=== PATIENT | female | born 1950 | race Caucasian/White ===

== ENCOUNTER 2025-02-20 07:51 | Day surgery (SDC) | payer OTHER, MEDICARE ==
[~2025-02-20] VITALS: Ht 157.5 cm; Wt 45.2 kg
[2025-02-20] MEDS ORDERED: CALCIUM CIT 311 EAC7 (08:01)
[2025-02-20] MEDS ORDERED: LEVSOD75 (08:02)
[2025-02-20] MEDS ORDERED: SUMA25 (08:02)
[2025-02-20 10:07] VITALS: BP 100/82
== END 2025-02-20 10:12 | disposition home or self-care (01) ==
LOC: ORSCSDS 07:51
PROVIDERS: Family Medicine
PROC: 0DJD8ZZ Inspection of Lower Intestinal Tract, Via Natural or Artificial Opening Endoscopic (ICD-10-PCS; principal; 2025-02-20 09:00)
DX: Z12.11 Encounter for screening for malignant neoplasm of colon (principal); K57.30 Diverticulosis of large intestine without perforation or abscess without bleeding; F41.1 Generalized anxiety disorder; E03.9 Hypothyroidism, unspecified; E78.2 Mixed hyperlipidemia; Z87.891 Personal history of nicotine dependence
CPT/HCPCS: J2704; J7120